=== PATIENT | female | born 1990 | race Caucasian/White ===

== ENCOUNTER 2018-12-06 16:08 | Emergency (ER) | payer MEDICAID, OTHER ==
[2018-12-06] MEDS ORDERED: Lidocaine 2% VISCOUS* 15 ML UDC PO ONE (16:46)
[2018-12-06] MEDS ORDERED: Al Hydrox/Mg Hydrox/Simet LIQ* 30 ML UDC PO ONE (16:46)
[2018-12-06] MEDS ORDERED: Ondansetron INJ* 2 MG/ML VIAL IV ONE (16:46)
[2018-12-06] MEDS ORDERED: Pantoprazole IV* 40 MG IV ONE (16:46)
[2018-12-06] MEDS ORDERED: Metoclopramide IV* 5 MG/ML 2 ML VIAL IV ONE (17:09)
[2018-12-06 17:14] LABS: ABS Basophils 0.1 10^3/ul (0-0.2); ABS Lymphocytes 3.3 10^3/ul (1.0-4.8); ABS Neutrophils 5.1 10^3/ul (1.5-7.7); Hematocrit 40 % (35-47); Hemoglobin 13.5 g/dL (12.0-16.0); Lymphocyte % 34.9 %; Mean Corpuscular HGB Conc 34 g/dL (31-36); Mean Corpuscular Hemoglobin 30 pg (27-31); Mean Corpuscular Volume 89 fL (80-97); Mean Platelet Volume 7.7 fL (7.4-10.4); Platelet Count 319 10^3/uL (150-450); Red Blood Count 4.45 10^6 /uL (3.70-4.87); Red Cell Distribution Width 13 % (10-15); White Blood Count 9.5 10^3/uL (3.5-10.8)
[2018-12-06 17:29] LABS: Albumin 4.1 g/dL (3.2-5.2); Albumin/Globulin Ratio 1.6 (1-3); BUN/Creatinine Ratio 14.8 (8-20); C Reactive Protein 5.78 mg/L (<8.01); Calcium 9.1 mg/dL (8.6-10.3); EGFR African American 140.3 (>60); Globulin 2.5 g/dL (2-4); Potassium 3.9 mmol/L (3.5-5.0); Total Bilirubin 0.2 mg/dL (0.2-1.0); Total Protein 6.6 g/dL (6.4-8.9)
[2018-12-06 17:34] LABS: HCG Pregnancy 0.67 mIU/mL
--- NOTE | 2018-12-06 17:35 | ED ---
Abdominal Pain/Female - HPI Summary HPI Summary: 28 year old F presenting to [facility] with a chief complaint of intermittent burning left upper quadrant pain and epigastric pain since this morning today. Patient describes the pain as a burning sensation throughout her full abdomen mostly concentrated in her left upper quadrant, overall rated 5/10 in severity. Symptoms were alleviated by nothing, but were aggravated by food ingestion. Patient reports nausea and denies diarrhea. However, she has been experiencing feelings of constipation since two days ago, passing very dark stool that was almost blue in color. Patient states she had a fruit protein smoothie for breakfast today. Primary care physician performed a blood analysis during patients most recent visit to primary care provider's office and found abnormalities in patients pancreatic function per patient. Patient states she has a GI appointment at the end of January 2019. Patient has a history of GERD for which she takes omeprazole. Patient reports last menstrual cycle to have ended two weeks ago. Patient notes a surgical history of titanium plate placement in femur. Patient smokes and drinks alcohol, but does not do recreational drugs. Patient reports family history of diabetes and heart disease. - History of Current Complaint Chief Complaint: EDAbdPain Stated Complaint: UPPER ABD PAIN PER PT Time Seen by Provider: 12/06/18 16:41 Hx Obtained From: Patient Onset/Duration: Lasting Hours, Still Present Timing: Intermittent Episode Lasting Severity Currently: Moderate Pain Intensity: 5 Pain Scale Used: 0-10 Numeric Location: Discrete At: LUQ, Epigastric Character: Burning Aggravating Factor(s): Food Alleviating Factor(s): Nothing Associated Signs and Symptoms: Positive: Nausea, Other: - constipation since two days prior to arrival. Negative: Diarrhea Allergies/Adverse Reactions: Allergies Allergy/AdvReac Type Severity Reaction Status Date / Time fentanyl Allergy Hives Verified 12/06/18 16:17 latex Allergy Hives Verified 12/06/18 16:17 nitrofurantoin Allergy Hives Verified 12/06/18 16:17 [From Macrobid] oxycodone Allergy Hives Verified 12/06/18 16:17 PMH/Surg Hx/FS Hx/Imm Hx Endocrine/Hematology History: Denies: Hx Diabetes Cardiovascular History: Denies: Hx Congenital Heart Disease, Hx Hypertension GI History: Reports: Hx Gastroesophageal Reflux Disease - Surgical History Surgical History: Yes Surgery Procedure, Year, and Place: Titanium place placed in patient's femur Infectious Disease History: No Infectious Disease History: Denies: Traveled Outside the [place] in Last 30 Days - Family History Known Family History: Positive: Cardiac Disease, Diabetes - Social History Alcohol Use: Occasionally Hx Substance Use: No Substance Use Type: Reports: None Hx Tobacco Use: Yes Smoking Status (MU): Current Every Day Smoker Review of Systems Negative: Fever Positive: Abdominal Pain, Nausea - burning RUQ pain that raidiates throughout her entire abdomen. Negative: Diarrhea All Other Systems Reviewed And Are Negative: Yes Physical Exam - Summary Physical Exam Summary: FEMALE ABDOMINAL PAIN EXAM: VITAL SIGNS: Reviewed. GENERAL: Patient is a well-developed and nourished female who is lying comfortable in the stretcher. Patient is not in any acute respiratory distress. HEAD AND FACE: Normocephalic and atraumatic. EYES: PERRLA, EOMI x 2, No injected conjunctiva. EARS: Hearing grossly intact. Ear canals and tympanic membranes are WNL. MOUTH: Oropharynx within normal limits. NECK: Supple, trachea is midline, no adenopathy, no JVD. CHEST: Symmetric, no tenderness at palpation. LUNGS: Clear to auscultation bilaterally. No wheezing or crackles. CVS: RRR, S1 and S2 present, no murmurs or gallops appreciated. ABDOMEN: epigastric tenderness. EXTREMITIES: FROM in all major joints, no edema, no cyanosis or clubbing. NEURO: Alert and oriented x 3. No acute neurological deficits. Speech is normal. SKIN: Dry and warm. Triage Information Reviewed: Yes Vital Signs On Initial Exam: Initial Vitals Temp Pulse Resp BP Pulse Ox 98.4 F 74 16 118/74 97 12/06/18 16:10 12/06/18 16:10 12/06/18 16:10 12/06/18 16:10 12/06/18 16:10 Vital Signs Reviewed: Yes Abdomen Description: Positive: Other: - epigastric tenderness Diagnostics - Vital Signs Vital Signs Temp Pulse Resp BP Pulse Ox 12/06/18 16:10 98.4 F 74 16 118/74 97 - Laboratory Lab Results: Lab Results 12/06/18 12/06/18 12/06/18 Range/Units 17:05 17:05 17:05 WBC 9.5 (3.5-10.8) 10^3/uL RBC 4.45 (3.70-4.87) 10^6 /uL Hgb 13.5 (12.0-16.0) g/dL Hct 40 (35-47) % MCV 89 (80-97) fL MCH 30 (27-31) pg MCHC 34 (31-36) g/dL RDW 13 (10-15) % Plt Count 319 (150-450) 10^3/uL MPV 7.7 (7.4-10.4) fL Neut % (Auto) 53.6 % Lymph % (Auto) 34.9 % [place] % (Auto) 10.6 % Eos % (Auto) 0.0 % Baso % (Auto) 0.9 % Absolute Neuts (auto) 5.1 (1.5-7.7) 10^3/ul Absolute Lymphs (auto) 3.3 (1.0-4.8) 10^3/ul Absolute Monos (auto) 1.0 H (0-0.8) 10^3/ul Absolute Eos (auto) 0.0 (0-0.6) 10^3/ul Absolute Basos (auto) 0.1 (0-0.2) 10^3/ul Absolute Nucleated RBC 0.0 10^3/ul Nucleated RBC % 0.0 Sodium 137 (135-145) mmol/L Potassium 3.9 (3.5-5.0) mmol/L Chloride 106 (101-111) mmol/L Carbon Dioxide 25 (22-32) mmol/L Anion Gap 6 (2-11) mmol/L BUN 9 (6-24) mg/dL Creatinine 0.61 (0.51-0.95) mg/dL Est GFR ( Amer) 140.3 (>60) Est GFR (Non-Af Amer) 116.0 (>60) BUN/Creatinine Ratio 14.8 (8-20) Glucose 93 (70-100) mg/dL Lactic Acid 1.2 (0.5-2.0) mmol/L Calcium 9.1 (8.6-10.3) mg/dL Total Bilirubin 0.20 (0.2-1.0) mg/dL AST 21 (13-39) U/L ALT 28 (7-52) U/L Alkaline Phosphatase 84 (34-104) U/L C-Reactive Protein 5.78 (<8.01) mg/L Total Protein 6.6 (6.4-8.9) g/dL Albumin 4.1 (3.2-5.2) g/dL Globulin 2.5 (2-4) g/dL Albumin/Globulin Ratio 1.6 (1-3) Amylase 32 (29-103) U/L Lipase 46 (11.0-82.0) U/L Beta HCG, Quant Pending Result Diagrams: 12/06/18 17:05 12/06/18 17:05 Lab Statement: Any lab studies that have been ordered have been reviewed, and results considered in the medical decision making process. - Radiology Abdomen x-ray Radiology Interpretation Completed By: Radiologist Summary of Radiographic Findings: Impression: no evidence for acute finding. The ED physician reviewed this report - EKG 1657 Cardiac Rate: NL - 61 bpm EKG Rhythm: Sinus Rhythm Summary of EKG Findings: Normal sinus rhythm, 61 bpm. Normal axis, no ST elevations. Re-Evaluation - Re-Evaluation First Eval Re-Evaluation Time: 17:52 Change: Improved Comment: patient is feeling a lot better after the GI cocktail Abdominal Pain Fem Course/Dx - Course Course Of Treatment: 28 year old F presenting to [facility] with a chief complaint of intermittent burning left upper quadrant pain and epigastric pain since this morning today. Patient describes the pain as a burning sensation throughout her full abdomen mostly concentrated in her left upper quadrant, overall rated 5/10 in severity. Symptoms were alleviated by nothing, but were aggravated by food ingestion. Patient reports nausea and denies diarrhea. However, she has been experiencing feelings of constipation since two days ago, passing very dark stool that was almost blue in color. Patient states she had a fruit protein smoothie for breakfast today. Primary care physician performed a blood analysis during patients most recent visit to primary care provider's office and found abnormalities in patients pancreatic function per patient. Patient states she has a GI appointment at the end of January 2019. Patient has a history of GERD for which she takes omeprazole. Patient reports last menstrual cycle to have ended two weeks ago. Patient notes a surgical history of titanium plate placement in femur. Patient smokes and drinks alcohol, but does not do recreational drugs. Patient reports family history of diabetes and heart disease. Blood work without any significant abnormality. EKG shows a normal sinus rhythm without any ST elevation. In the ED course, the patient was given a GI cocktail after which all symptoms have resolved. At this point, the patient is hemodynamically stable, alert and oriented 3. She was also given Reglan and the nausea resolved. I will send a prescription for Protonix and she will take it instead of the omeprazole. She will follow-up with the primary care physician and she will keep the GI appointment. - Diagnoses Provider Diagnoses: GERD (gastroesophageal reflux disease) Discharge ED - Sign-Out/Discharge Documenting (check all that apply): Patient Departure - Discharge Patient Received Moderate/Deep Sedation with Procedure: No - Discharge Plan Condition: Stable Disposition: HOME Prescriptions: Pantoprazole TAB * [Protonix TAB*] 40 mg PO DAILY #15 tab Patient Education Materials: Gastroesophageal Reflux Disease (ED) Referrals: Care [facility] [Outside] - 3 Days Additional Instructions: Follow up with [facility] in 3 days. Return to the Emergency Department for new or worsening symptoms. - Billing Disposition and Condition Condition: STABLE Disposition: Home - Attestation Statements Document Initiated by [employer]: Yes Documenting Scribe: Bing Henry Provider For Whom Tamir is Documenting (Include Credential): Ari Ureña MD Scribe Attestation: Raquel Silva Tiffany Liu, scribed for Ari Ureña MD on 12/06/18 at 1855. Scribe Documentation Reviewed: Yes Provider Attestation: The documentation as recorded by the Raquel ferrara Tiffany Liu accurately reflects the service I personally performed and the decisions made by Ari foreman MD Status of Scribe Document: Viewed
[2018-12-06 18:15] VITALS: BP 110/67
== END 2018-12-06 18:15 | disposition home or self-care (01) ==
LOC: ED 16:08
DX: K21.9 Gastro-esophageal reflux disease without esophagitis (principal); F17.200 Nicotine dependence, unspecified, uncomplicated; Z79.899 Other long term (current) drug therapy; Z88.5 Allergy status to narcotic agent; Z88.1 Allergy status to other antibiotic agents; Z91.040 Latex allergy status
CPT/HCPCS: 36415; 74019; 80053; 82150; 83605; 83690; 84702; 85025; 86140; 93005; 96374; 96375; 99283; A9270-GY; J2765